=== PATIENT | female | born 1930 | race Caucasian/White ===

== ENCOUNTER 2018-05-07 13:40 | Inpatient (IN) | payer MEDICARE, BC ==
[~2018-05-07] VITALS: Ht 147.3 cm; Wt 63.5 kg
--- NOTE | 2018-05-07 14:05 | NUR ---
PT IS IN ROOM #2A. DR MELGAR EVALUATED THE PT.
[2018-05-07] MEDS ORDERED: ONDANSETRON 4 MG/2 ML VIAL ONE (14:26)
[2018-05-07] MEDS ORDERED: GABAPENTIN 100 MG CAPSULE ONE ×2 (14:26→16:21)
[2018-05-07] MEDS ORDERED: MORPHINE SULFATE 4 MG/1 ML DISP.SYRIN ONE ×2 (14:26→16:22)
[2018-05-07 14:27] LABS: BASOPHILS # (AUTO) 0.1 K/uL (0.0-8.0); BASOPHILS % (AUTO) 1.2 % (0.0-2.0); EOSINOPHILS # (AUTO) 0.1 K/uL (0.0-0.7); EOSINOPHILS % (AUTO) 0.6 % (0.0-7.0); HEMATOCRIT 42.2 % (31.2-41.9); HEMOGLOBIN 14.6 g/dL (10.9-14.3); LYMPHOCYTES # (AUTO) 1.5 K/uL (20.0-40.0); LYMPHOCYTES % (AUTO) 12.7 % (20.5-51.5); MEAN CORPUSCULAR HGB CONC 35 g/dL (32.3-35.6); MEAN CORPUSCULAR VOLUME 95.5 fL (75.5-95.3); MONOCYTES # (AUTO) 2.7 K/uL (2.0-10.0); MONOCYTES % (AUTO) 23.8 % (0.0-11.0); NEUTROPHILS # (AUTO) 7.1 K/uL (1.8-8.9); NEUTROPHILS % (AUTO) 61.7 % (38.5-71.5); PLATELET COUNT (AUTO) 189 K/uL (179-408); RED BLOOD CELL COUNT(AUTO) 4.42 MIL/uL (3.63-4.92); WHITE BLOOD COUNT (AUTO) 11.5 K/uL (3.8-11.8)
[2018-05-07] MEDS ORDERED: LIDOCAINE 5% PATCH TD ONE ×2 (14:27→14:30)
[2018-05-07] MEDS ORDERED: ONDANSETRON 4 MG/2 ML VIAL IV ONE (14:30)
[2018-05-07] MEDS ORDERED: MORPHINE SULFATE 4 MG/1 ML DISP.SYRIN IV ONE ×2 (14:30→16:15)
[2018-05-07] MEDS ORDERED: GABAPENTIN 100 MG CAPSULE PO ONE ×2 (14:30→16:15)
[2018-05-07 14:32] LABS: CARBON DIOXIDE 30 mmol/L (21-32); CHLORIDE 98 mmol/L (98-107); CREATININE 0.7 mg/dL (0.6-1.3); GLUCOSE 131 mg/dL (74-106); POTASSIUM 3.5 mmol/L (3.5-5.1); UREA NITROGEN, BLOOD 17 mg/dL (7-18)
[2018-05-07 14:43] LABS: ALANINE AMINOTRANSFERASE 29 U/L (14-59); ALKALINE PHOSPHATASE 86 U/L (50-136); ASPARTATE AMINOTRANSFERASE 21 U/L (15-37); BILIRUBIN,DIRECT 0.1 mg/dL (0.0-0.2); BILIRUBIN,TOTAL 0.6 mg/dL (0.2-1.0); TOTAL PROTEIN, SERUM 7.5 g/dL (6.4-8.2)
[2018-05-07] MEDS ORDERED: PREG75CA PO (14:44)
[2018-05-07] MEDS ORDERED: LEVO40CA PO (14:44)
[2018-05-07] MEDS ORDERED: LATA2.5D2 EACHEYE (14:44)
[2018-05-07] MEDS ORDERED: MOME17SP BNOSTRILS (14:44)
[2018-05-07] MEDS ORDERED: ZOLP10TA6 PO (14:44)
[2018-05-07] MEDS ORDERED: ASPI81TA31 PO (14:44)
[2018-05-07] MEDS ORDERED: OLME1TAB22 PO (14:44)
[2018-05-07] MEDS ORDERED: LUBI24CA5 PO (14:44)
[2018-05-07 14:52] LABS: BAND % (MANUAL) 6 % (0-10); EOSINOPHILS % (MANUAL) 1 % (0-8); LYMPHOCYTES % (MANUAL) 15 % (20-40); MONOCYTES % (MANUAL) 18 % (2-10); NEUTROPHILS % (MANUAL) 60 % (42-75)
[2018-05-07] MEDS ORDERED: ASCO500C16 PO (14:58)
[2018-05-07] MEDS ORDERED: LIDO1ADH43 TP (14:58)
[2018-05-07] MEDS ORDERED: OMEG1CAP40 PO (14:58)
[2018-05-07] MEDS ORDERED: CALC-343 PO (14:58)
[2018-05-07] MEDS ORDERED: BIOTIN PO (14:58)
[2018-05-07] MEDS ORDERED: MULT1TAB73 PO (14:58)
[2018-05-07] MEDS ORDERED: CHOL10005 PO (14:58)
[2018-05-07] MEDS ORDERED: DICL100G16 TP (14:58)
[2018-05-07] MEDS ORDERED: MAGN400C PO (14:58)
[2018-05-07] MEDS ORDERED: RANI150T43 PO (15:03)
[2018-05-07] MEDS ORDERED: ONDANSETRON 4 MG/2 ML VIAL IV PRN (16:00)
[2018-05-07] MEDS ORDERED: MAGNESIUM HYDROXIDE 30 ML LIQUID UDC PO PRN (16:00)
[2018-05-07] MEDS ORDERED: MORPHINE SULFATE 2 MG/1 ML DISP.SYRIN IV PRN (16:00)
[2018-05-07] MEDS ORDERED: ACETAMINOPHEN 325 MG TABLET PO PRN (16:00)
[2018-05-07] MEDS ORDERED: Z GUARD REMEDY PASTE 57 GM TUBE TOP PRN (16:00)
--- NOTE | 2018-05-07 16:11 | NUR ---
Pharmacy Note: Fetzima and Amitiza not available in formulary. Patient states family will bring from home for distribution.
[2018-05-07] MEDS ORDERED: PREGABALIN 100 MG CAPSULE PO SCH (17:00)
--- NOTE | 2018-05-07 17:34 | NUR ---
pt was transfered to room #208. report was given to bessy crooks.
--- NOTE | 2018-05-07 18:00 | NUR ---
RECEIVED REPORT FROM ER NURSE, PATIENT WAS ORIENTED TO ROOM, TELE MONITOR APPLIED, AND PATIENT SITUATED IN BED. BLADDER SCANNED FOR DISTENTION AND NOTED TO BE 850CC OF URINE. ASKED PATIENT TO TRY TO GO IN THE DIAPER OR SHE MAY NEED TO HAVE A CATHETER INSERTED. AFTER SOME TIME, PATIENT WAS ABLE TO URINATE IN DIAPER.
[2018-05-07 18:02] VITALS: BP 128/57
[2018-05-07 19:00] VITALS: BP 148/80
[2018-05-07] MEDS: LATANOPROST OPHT DROP 2.5 ML BOTTLE EACHEYE SCH (20:19)
[2018-05-07] MEDS: HYDROCODONE/APAP 10-325 MG TABLET PO PRN (20:19)
--- NOTE | 2018-05-07 20:30 | NUR ---
PATIENT IS AWAKE IN BED, AAOX4. C/O OF NECK PAIN 02/21. PRN PAIN MEDS GIVEN ORDERED. ON TELE WITH SR. SAFETY AND COMFORT MEASURES IN PLACE. WILL CONTINUE TO MONITOR PATIENT
[2018-05-07] MEDS ORDERED: ZOLPIDEM 5 MG TABLET PO PRN (23:15)
[2018-05-08] VITALS (7 sets, daily range): BP systolic 120–161; BP diastolic 67–83
[2018-05-08] MEDS: HYDROCODONE/APAP 10-325 MG TABLET PO PRN ×2 (04:00→21:26)
[2018-05-08] MEDS: MORPHINE SULFATE 4 MG/1 ML DISP.SYRIN IV PRN ×4 (05:04→20:49)
[2018-05-08] MEDS ORDERED: MORPHINE SULFATE 4 MG/1 ML DISP.SYRIN IV ONE (05:45)
[2018-05-08] MEDS: PANTOPRAZOLE SODIUM 40 MG TABLET.DR PO SCH (06:04)
--- NOTE | 2018-05-08 06:45 | NUR ---
PATIENT IS ASLEEP NO C/O CHEST PAIN ON THIS SHIFT. PRN PAIN MEDS GIVEN ORDERED. BP WAS ELEVATED 168/84 MD MED AWARE, NEW ORDERS GIVEN AND CARRIED OUT. BP NOW DOWN 152/71.SAFETY AND COMFORT MEASURES MAINTAINED AT ALL TIMES
[2018-05-08 06:47] LABS: BASOPHILS # (AUTO) 0.1 K/uL (0.0-8.0); BASOPHILS % (AUTO) 0.9 % (0.0-2.0); EOSINOPHILS # (AUTO) 0.1 K/uL (0.0-0.7); EOSINOPHILS % (AUTO) 0.9 % (0.0-7.0); HEMATOCRIT 40.9 % (31.2-41.9); LYMPHOCYTES # (AUTO) 1.1 K/uL (20.0-40.0); LYMPHOCYTES % (AUTO) 11.5 % (20.5-51.5); MEAN CORPUSCULAR HEMOGLOBIN 32.9 uug (24.7-32.8); MEAN CORPUSCULAR HGB CONC 34 g/dL (32.3-35.6); MEAN CORPUSCULAR VOLUME 96.1 fL (75.5-95.3); MONOCYTES # (AUTO) 2.6 K/uL (2.0-10.0); MONOCYTES % (AUTO) 26.6 % (0.0-11.0); NEUTROPHILS # (AUTO) 5.8 K/uL (1.8-8.9); NEUTROPHILS % (AUTO) 60.1 % (38.5-71.5); PLATELET COUNT (AUTO) 176 K/uL (179-408); RED BLOOD CELL COUNT(AUTO) 4.25 MIL/uL (3.63-4.92); WHITE BLOOD COUNT (AUTO) 9.6 K/uL (3.8-11.8)
[2018-05-08 06:49] LABS: CARBON DIOXIDE 32 mmol/L (21-32); CHLORIDE 103 mmol/L (98-107); CHOLESTEROL 200 mg/dL (<200); CREATININE 0.7 mg/dL (0.6-1.3); GLUCOSE 125 mg/dL (74-106); HDL CHOLESTEROL 106 mg/dL (40-60); MAGNESIUM 1.9 mg/dL (1.8-2.4); POTASSIUM 3.9 mmol/L (3.5-5.1); TRIGLYCERIDES 69 MG/DL (30-150); UREA NITROGEN, BLOOD 12 mg/dL (7-18)
[2018-05-08 07:03] LABS: THYROID STIMULATING HORMONE 2.143 mIU/mL (0.358-3.740)
[2018-05-08] MEDS ORDERED: HYDROCHLOROTHIAZIDE PO SCH (09:00)
[2018-05-08] MEDS ORDERED: MOMETASONE FUROATE NASAL 17 GM SPRAY.PUMP NS SCH (09:00)
[2018-05-08] MEDS ORDERED: LEVOMILNACIPRAN PO SCH (09:00)
[2018-05-08] MEDS ORDERED: LUBIPROSTONE PO SCH (09:00)
[2018-05-08] MEDS ORDERED: OLMESARTAN PO SCH (09:00)
[2018-05-08] MEDS: PREGABALIN 25 MG CAPSULE PO SCH ×2 (09:15→16:32)
[2018-05-08] MEDS: CHOLECALCIFEROL 1,000 UNIT TABLET PO SCH (09:16)
[2018-05-08] MEDS: CALCIUM CARBONATE 500 MG TABLET PO SCH (09:16)
[2018-05-08] MEDS: ASCORBIC ACID 500 MG TABLET PO SCH (09:16)
[2018-05-08] MEDS: ASPIRIN 81 MG TAB.CHEW PO SCH (09:16)
[2018-05-08] MEDS: MULTIVITAMINS,THERAPEUTIC TABLET PO SCH (09:16)
[2018-05-08] MEDS: MAGNESIUM OXIDE 250 MG TABLET PO SCH (09:21)
[2018-05-08 09:58] LABS: BAND % (MANUAL) 3 % (0-10); BASOPHILS % (MANUAL) 1 % (0-2); EOSINOPHILS % (MANUAL) 2 % (0-8); LYMPHOCYTES % (MANUAL) 13 % (20-40); MONOCYTES % (MANUAL) 19 % (2-10); NEUTROPHILS % (MANUAL) 62 % (42-75)
[2018-05-08] MEDS ORDERED: TRAMADOL HCL 50 MG TABLET PO PRN (11:45)
[2018-05-08] MEDS ORDERED: POTASSIUM CHLORIDE 20 MEQ POWDER PACKET PO ONE (12:00)
[2018-05-08] MEDS: MAGNESIUM SULFATE/D5W 100 ML IV SCH ×3 (13:00→14:16)
[2018-05-08] MEDS ORDERED: MAGNESIUM OXIDE 400 MG TABLET PO ONE (15:30)
--- NOTE | 2018-05-08 15:32 | NUR ---
PT C/O PAIN 10/10 IN HAND. CAN NOT TOLERATE MAGNESIUM IV. PT REFUSED SECOND BAG OF MAGNESIUM. REQUESTED PO. CONTINUE TO MONITOR PT.
[2018-05-08] MEDS: HYDROCHLOROTHIAZIDE 25 MG TABLET PO SCH (16:31)
[2018-05-08] MEDS: VALSARTAN 160 MG TABLET PO SCH (18:23)
--- NOTE | 2018-05-08 18:54 | NUR ---
PT IS CALM, COOPERATIVE, ON 2L NASAL CANNULA, NO SIGNS OF RESPIRATORY DISTRESS, DIOVAN 160MG AND HYDROCHLOROTHIAZIDE 25MG ORDERED FOR BP CONTROL, PT COULD NOT TOLERATE MAGNESIUM IV, ORDER CHANGED TO ORAL MAGNESIUM. JJ THE DAUGHTER [place] WAS INFORMED TO TELL TO BRING IN HOME MEDICATIONS FETZIMA 40MG, AMITIZA 24MCG. CONTINUE TO MONITOR PT.
[2018-05-08] MEDS: LATANOPROST OPHT DROP 2.5 ML BOTTLE EACHEYE SCH (20:49)
--- NOTE | 2018-05-08 20:50 | NUR ---
PATIENT IS AWAKE IN BED, AAOX4. C/O AND CRYING WITH NECK PAIN. PRN PAIN MEDS GIVEN ORDERED. DENIES CHEST PAIN ON ASSESSMENT. SAFETY AND COMFORT MEASURES IN PLACE
[2018-05-09 00:08] VITALS: BP 107/49
[2018-05-09 04:00] VITALS: BP 152/80
[2018-05-09] MEDS: MORPHINE SULFATE 4 MG/1 ML DISP.SYRIN IV PRN ×2 (04:33→10:42)
[2018-05-09] MEDS: PANTOPRAZOLE SODIUM 40 MG TABLET.DR PO SCH (06:00)
--- NOTE | 2018-05-09 06:30 | NUR ---
PATIENT SLEPT WELL THROUGH THE SHIFT. PRN PAIN MEDS GIVEN REQUESTED. BP WNL, NO C/O OF CHEST PAIN ON THIS SHIFT. PATIENT KEPT COMFORTABLE
--- NOTE | 2018-05-09 08:00 | NUR ---
AWAKE ALERT AND VERBALLY RESPONSIVE, VERY FORGETFUL. CONTINUE WITH PAIN OBSERVATION AND MANAGEMENT. SR ON MONITOR
[2018-05-09] MEDS: CHOLECALCIFEROL 1,000 UNIT TABLET PO SCH (08:21)
[2018-05-09] MEDS: ASCORBIC ACID 500 MG TABLET PO SCH (08:21)
[2018-05-09] MEDS: ASPIRIN 81 MG TAB.CHEW PO SCH (08:21)
[2018-05-09] MEDS: MULTIVITAMINS,THERAPEUTIC TABLET PO SCH (08:21)
[2018-05-09] MEDS: HYDROCHLOROTHIAZIDE 25 MG TABLET PO SCH (08:22)
[2018-05-09] MEDS: MAGNESIUM OXIDE 250 MG TABLET PO SCH (08:22)
[2018-05-09] MEDS: CALCIUM CARBONATE 500 MG TABLET PO SCH (08:22)
[2018-05-09] MEDS: VALSARTAN 160 MG TABLET PO SCH (08:22)
[2018-05-09] MEDS: PREGABALIN 25 MG CAPSULE PO SCH (08:23)
[2018-05-09] MEDS: HYDROCODONE/APAP 10-325 MG TABLET PO PRN ×2 (08:27→21:34)
[2018-05-09] MEDS ORDERED: PREGABALIN 25 MG CAPSULE PO SCH (09:00)
--- NOTE | 2018-05-09 10:00 | NUR ---
SEEN BY DR DE DIOS FOR PAIN MANAGEMENT WITH ORDERS. SEE NOTES
[2018-05-09] MEDS: LORAZEPAM 0.5 MG TABLET PO PRN (10:41)
[2018-05-09 11:39] VITALS: BP 136/57
--- NOTE | 2018-05-09 14:55 | NUR ---
CONTINUE WITH PAIN MANAGEMENT ORDERED WITH TEMPORARY RELIEF. TOLERATING PHYSICAL THERAPY FAIRLY WELL. PLAN PER PT RECOMMENDATION IS FOR SNF/[facility] FOR CONTINUE OF CARE PRINTING SUPERVISOR AWARE. SEE NOTES
[2018-05-09 15:27] VITALS: BP 99/53
[2018-05-09] MEDS: PREGABALIN 50 MG CAPSULE PO SCH (15:42)
[2018-05-09] MEDS: HYDROCODONE/APAP 5-325MG TABLET PO PRN (15:42)
[2018-05-09] MEDS ORDERED: METHYL SALICYLATE/MENTHOL CREAM 28 GM TUBE TOP PRN (16:00)
--- NOTE | 2018-05-09 19:50 | NUR ---
RECEIVED PATIENT IN BED ALERT ORIENTED, ABLE TO MAKE NEEDS KNOWN, CONT ON PAIN MANAGEMET, NO COMPLAIN OF PAIN AT THIS TIME. CONT TO MONITOR. FAMILY AT BEDSIDES.
[2018-05-09 20:04] VITALS: BP 112/70
[2018-05-09] MEDS: LATANOPROST OPHT DROP 2.5 ML BOTTLE EACHEYE SCH (21:26)
[2018-05-10 04:00] VITALS: BP 101/64
[2018-05-10] MEDS: HYDROCODONE/APAP 5-325MG TABLET PO PRN (05:00)
[2018-05-10] MEDS: PANTOPRAZOLE SODIUM 40 MG TABLET.DR PO SCH (06:12)
--- NOTE | 2018-05-10 06:25 | NUR ---
PATIENT SLEPT MOST OF THE NIGHT, CONT PAIN MANAGEMENT. PATIENT HAS ALSO EPISODES OF ANXIETY MB YELLING AND SCREAMING. ATTEND ALL NEEDS, ASSIST WITH TOILETING. NO ADVERSE REACTION FROM ATIVAN NOTED, PRIVATE CUSTOM MILLER AT BEDSIDE.
--- NOTE | 2018-05-10 07:00 | NUR ---
RESTING IN BED WITH EYES CLOSED EASILY AWAKEN NO SS OF PAIN OR DISTRESS. WILL CONTINUE WITH PAIN MANAGEMENT FOR NOW
[2018-05-10] MEDS: CHOLECALCIFEROL 1,000 UNIT TABLET PO SCH (08:35)
[2018-05-10] MEDS: CALCIUM CARBONATE 500 MG TABLET PO SCH (08:35)
[2018-05-10] MEDS: ASPIRIN 81 MG TAB.CHEW PO SCH (08:36)
[2018-05-10] MEDS: ASCORBIC ACID 500 MG TABLET PO SCH (08:36)
[2018-05-10] MEDS: MULTIVITAMINS,THERAPEUTIC TABLET PO SCH (08:36)
[2018-05-10] MEDS: MAGNESIUM OXIDE 250 MG TABLET PO SCH (08:36)
[2018-05-10] MEDS: PREGABALIN 50 MG CAPSULE PO SCH ×2 (08:36→16:05)
[2018-05-10] MEDS: HYDROCHLOROTHIAZIDE 25 MG TABLET PO SCH (08:37)
[2018-05-10] MEDS: VALSARTAN 160 MG TABLET PO SCH (08:47)
[2018-05-10] MEDS ORDERED: METH28OI2 TOP (09:02)
[2018-05-10] MEDS ORDERED: VALS160T2 PO (09:02)
[2018-05-10] MEDS ORDERED: HYDR25TA4 PO (09:02)
[2018-05-10] MEDS ORDERED: PREG50CA PO (09:02)
--- NOTE | 2018-05-10 10:30 | NUR ---
SEEN BY DR ERVIN FOR PAIN MANAGEMENT, PLAN CORTISONE SHOT IN HIS CLINIC WHEN DISCHARGE
[2018-05-10] MEDS: HYDROCODONE/APAP 10-325 MG TABLET PO PRN (10:36)
--- NOTE | 2018-05-10 11:00 | NUR ---
SEEN BY HOSPITALIST WITH DISCHARGE ORDER SEE NOTES
[2018-05-10] MEDS: LORAZEPAM 0.5 MG TABLET PO PRN (11:04)
[2018-05-10 11:49] VITALS: BP 133/79
[2018-05-10] MEDS: MORPHINE SULFATE 4 MG/1 ML DISP.SYRIN IV PRN (14:20)
[2018-05-10 15:50] VITALS: BP 93/58
--- NOTE | 2018-05-10 19:30 | NUR ---
Received patient in stable condition with no acute distress. Vital signs within range at start of shift. BP slightly low at 93/57, patient is asymptomatic, alert, awake, oriented. Patient is hard of hearing. Noted with left hand 22G IV site which is locked, patent, & flushing well. On o2 via NC at 3L. No SOB noted. Personal sitter at the bedside. Call light within reach. Will continue to monitor through shift.
[2018-05-10 20:00] VITALS: BP 93/57
[2018-05-10] MEDS: LATANOPROST OPHT DROP 2.5 ML BOTTLE EACHEYE SCH (20:19)
[2018-05-11] MEDS: HYDROCODONE/APAP 10-325 MG TABLET PO PRN ×2 (02:10→08:37)
[2018-05-11 04:00] VITALS: BP 93/55
[2018-05-11] MEDS: PANTOPRAZOLE SODIUM 40 MG TABLET.DR PO SCH (06:16)
--- NOTE | 2018-05-11 06:31 | NUR ---
Patient remained stable through shift. Vital signs WNL. Personal sitter at the bedside through out the night. All needs attended to promptly. Patient kept clean & dry. Pain management provided per MD order. Safety measures implemented. Call light within reach. Will endorse accordingly.
--- NOTE | 2018-05-11 08:00 | NUR ---
NO ACUTE PAIN OR SIGNS OF DISTRESS. CONTINUE WITH PAIN MANAGEMENT
[2018-05-11] MEDS: PREGABALIN 50 MG CAPSULE PO SCH (08:37)
[2018-05-11 08:38] VITALS: BP 133/70
[2018-05-11] MEDS: VALSARTAN 160 MG TABLET PO SCH (08:38)
[2018-05-11] MEDS: ASCORBIC ACID 500 MG TABLET PO SCH (08:38)
[2018-05-11] MEDS: MAGNESIUM OXIDE 250 MG TABLET PO SCH (08:38)
[2018-05-11] MEDS: LORAZEPAM 0.5 MG TABLET PO PRN (08:38)
[2018-05-11] MEDS: ASPIRIN 81 MG TAB.CHEW PO SCH (08:38)
[2018-05-11] MEDS: HYDROCHLOROTHIAZIDE 25 MG TABLET PO SCH (08:38)
[2018-05-11] MEDS: MULTIVITAMINS,THERAPEUTIC TABLET PO SCH (08:38)
[2018-05-11] MEDS: CALCIUM CARBONATE 500 MG TABLET PO SCH (08:39)
[2018-05-11] MEDS: CHOLECALCIFEROL 1,000 UNIT TABLET PO SCH (08:39)
--- NOTE | 2018-05-11 10:00 | NUR ---
SEEN BY PHYSICAL THERAPIST SEE NOTES
[2018-05-11] MEDS ORDERED: HYDR-3326 PO (11:19)
[2018-05-11] MEDS ORDERED: LORA0.5T48 PO (11:19)
--- NOTE | 2018-05-11 11:36 | NUR ---
SPOKE WITH SON RREGASAMMIING DISCHARGE PLAN SAID PATIENT WILL BE PICK-UP BY FAMILY OR CUSTOMER SALES REPRESENTATIVE.
--- NOTE | 2018-05-11 13:49 | NUR ---
discharged home stable accompanied by son and caregiver via private car. instruction given to son
== END 2018-05-11 13:50 | disposition home or self-care (01) | DRG 552 ==
LOC: ER 13:40 → TELE 17:28 → MED 05-09 15:24
PROVIDERS: ADMIT Nurse Practitioner Acute Care; ATTEND Nurse Practitioner Acute Care
DX: M47.22 Other spondylosis with radiculopathy, cervical region (principal); M94.0 Chondrocostal junction syndrome [Tietze]; I10 Essential (primary) hypertension; G89.29 Other chronic pain; Z92.21 Personal history of antineoplastic chemotherapy; Z85.3 Personal history of malignant neoplasm of breast; K58.9 Irritable bowel syndrome, unspecified; K21.9 Gastro-esophageal reflux disease without esophagitis; E66.9 Obesity, unspecified; G47.00 Insomnia, unspecified; H40.9 Unspecified glaucoma; Z90.710 Acquired absence of both cervix and uterus; Z92.3 Personal history of irradiation; Z98.1 Arthrodesis status; Z68.29 Body mass index [BMI] 29.0-29.9, adult; Z88.0 Allergy status to penicillin; M54.9 Dorsalgia, unspecified; M41.85 Other forms of scoliosis, thoracolumbar region; M51.16 Intervertebral disc disorders with radiculopathy, lumbar region; I49.3 Ventricular premature depolarization; M48.02 Spinal stenosis, cervical region; H91.92 Unspecified hearing loss, left ear
CPT/HCPCS: 36415; 70030-TC; 71045; 83735; 84100; 84443; 85025; 85730; 93005; 93307; 97110; 97116; 97165; 97530; A4663; J2270; J2405; J3475; J3490